=== PATIENT | female | born 1985 | race Caucasian/White ===

== ENCOUNTER 2017-01-08 20:56 | Emergency (ER) | payer SELFPAY ==
[2017-01-08] MEDS ORDERED: traMADol HCl 50 MG TAB ONE (22:03)
== END 2017-01-08 22:09 | disposition home or self-care (01) ==
LOC: BURERS 20:56
DX: E04.1 Nontoxic single thyroid nodule (principal); I10 Essential (primary) hypertension; F17.210 Nicotine dependence, cigarettes, uncomplicated
CPT/HCPCS: 99282

== ENCOUNTER 2017-02-20 11:32 | Emergency (ER) | payer SELFPAY ==
[2017-02-20 12:03] LABS: Bilirubin Negative (Negative); Blood, Urine Trace (Negative); Clarity Clear (Clear); Glucose, Urine (Dipstick) Negative (Negative); Leukocyte Negative (Negative); Nitrite Negative (Negative); Protein, Urine (Dipstick) Negative (Neg-Trace); Specific Gravity, Urine 1.015 (1.005-1.030); Urobilinogen 0.2 mg/dL (0.2-1.0); pH, Urine 6.5 (5.0-9.0)
[2017-02-20 12:07] LABS: Pregu Control Bar Appear? YES (CONTROL BAR)
[2017-02-20 12:08] LABS: Specific Gravity 1.015 (1.002-1.036)
[2017-02-20 12:14] LABS: RBC/HPF 0-3 HPF (0-3); Squamous Epithelial 0-3 HPF (0-3)
== END 2017-02-20 12:32 | disposition home or self-care (01) ==
LOC: BURERS 11:32
DX: Z32.02 Encounter for pregnancy test, result negative (principal); E07.89 Other specified disorders of thyroid; I10 Essential (primary) hypertension; I42.9 Cardiomyopathy, unspecified; F17.210 Nicotine dependence, cigarettes, uncomplicated
CPT/HCPCS: 81003; 81015; 81025; 99282

== ENCOUNTER 2017-09-05 13:53 | Emergency (ER) | payer SELFPAY ==
[2017-09-05 14:40] LABS: Anion Gap 13 mmol/L (10-20); BUN (Urea Nitrogen) 9 mg/dL (7.0-18.7); Calc. Creatinine Clearance 0 mL/min (70-130); Calcium 8.5 mg/dL (7.8-10.44); Carbon Dioxide 23 mmol/L (22-29); Chloride 107 mmol/L (98-107); Estimated GFR-MDRD 82; Glucose 109 mg/dL (70-105); Potassium 3.6 mmol/L (3.5-5.1); Sodium 139 mmol/L (136-145)
[2017-09-05 14:41] LABS: BHCG - Serum Negative (NEGATIVE); Pregs Control Background? CLEAR/WHITE (CLR/WHITE); Pregs Control Bar Appear? YES (CONTROL BAR)
== END 2017-09-05 15:05 | disposition home or self-care (01) ==
LOC: BURERS 13:53
DX: R60.0 Localized edema (principal); I10 Essential (primary) hypertension; I42.9 Cardiomyopathy, unspecified; F17.210 Nicotine dependence, cigarettes, uncomplicated
CPT/HCPCS: 36415; 80048; 84703; 85379; 99283

== ENCOUNTER 2017-11-18 19:23 | Emergency (ER) | payer SELFPAY ==
[2017-11-18] MEDS ORDERED: Ondansetron ODT 4 MG TAB ONE (19:39)
== END 2017-11-18 19:50 | disposition home or self-care (01) ==
LOC: BURERS 19:23
DX: B34.9 Viral infection, unspecified (principal); I10 Essential (primary) hypertension; F17.210 Nicotine dependence, cigarettes, uncomplicated
CPT/HCPCS: 99283; Q0162

== ENCOUNTER 2017-12-22 20:05 | Emergency (ER) | payer SELFPAY | END 2017-12-22 21:07 | disposition home or self-care (01) | LOC: BURERS 20:05 | DX: R60.0 Localized edema (principal); I10 Essential (primary) hypertension; F17.210 Nicotine dependence, cigarettes, uncomplicated | CPT/HCPCS: 36415; 85379; 99283 ==

== ENCOUNTER 2018-04-23 19:05 | Emergency (ER) | payer SELFPAY ==
[2018-04-23 19:52] LABS: BHCG - Serum Negative (NEGATIVE); Pregs Control Background? CLEAR/WHITE (CLR/WHITE); Pregs Control Bar Appear? YES (CONTROL BAR)
== END 2018-04-23 20:15 | disposition home or self-care (01) ==
LOC: BURERS 19:05
DX: R60.9 Edema, unspecified (principal); I10 Essential (primary) hypertension; F17.210 Nicotine dependence, cigarettes, uncomplicated; Z79.899 Other long term (current) drug therapy
CPT/HCPCS: 36415; 83880; 84703; 85379; 99283

== ENCOUNTER 2019-06-28 14:39 | Emergency (ER) | payer MEDICAID, SELFPAY ==
[2019-06-28] MEDS ORDERED: AMOXicillin 250 MG CAP ONE (15:10)
== END 2019-06-28 15:19 | disposition home or self-care (01) ==
LOC: BURERS 14:39
DX: K02.9 Dental caries, unspecified (principal); K03.81 Cracked tooth; F17.210 Nicotine dependence, cigarettes, uncomplicated; I10 Essential (primary) hypertension; I42.9 Cardiomyopathy, unspecified
CPT/HCPCS: 99283

== ENCOUNTER 2019-11-30 18:36 | Emergency (ER) | payer SELFPAY ==
[2019-11-30] MEDS ORDERED: predniSONE 20 MG TAB ONE ×2 (19:19)
== END 2019-11-30 19:45 | disposition home or self-care (01) ==
LOC: BURERS 18:36
DX: E07.89 Other specified disorders of thyroid (principal); I10 Essential (primary) hypertension; F17.210 Nicotine dependence, cigarettes, uncomplicated
CPT/HCPCS: 99282; J7512

== ENCOUNTER 2021-12-06 09:04 | Emergency (ER) | payer OTHER ==
[2021-12-06 10:10] LABS: INR-International Normal Ratio 1.1
[2021-12-06 10:14] LABS: #Lymphocytes 0.4 thou/uL (1.20-3.40); #Monocytes 0.5 thou/uL (0.11-0.59); #Neutrophils 4.3 thou/uL (1.40-6.50); %Basophils 0.7 % (0.0-1.0); %Eosinophils 0.2 % (0.0-10.0); %Lymphocytes 8.3 % (21.0-51.0); %Monocytes 9.9 % (0.0-10.0); Hemoglobin 12.8 g/dL (12.0-16.0); Mean Corpuscular Hemoglobin 27.1 pg (27.0-31.0); Mean Corpuscular Volume 79.8 fL (78.0-98.0); Mean Platelet Volume 9.4 fL (7.4-10.4); Platelet Count 224 thou/uL (130-400); RBC Distribution Width 11.7 % (11.5-14.5); Red Blood Cell (RBC) Count 4.71 mill/uL (4.20-5.40); White Blood Cell (WBC) Count 5.4 thou/uL (4.8-10.8)
[2021-12-06 10:17] LABS: ALT (SGPT) 22 U/L (8-55); AST (SGOT) 14 U/L (5-34); Albumin 3.9 g/dL (3.5-5.0); Alkaline Phosphatase 91 U/L (40-110); Anion Gap 13 mmol/L (10-20); BUN (Urea Nitrogen) 10 mg/dL (7.0-18.7); Bilirubin, Total 0.4 mg/dL (0.2-1.2); Calc. Creatinine Clearance 0 mL/min (70-130); Calcium 9.1 mg/dL (7.8-10.44); Carbon Dioxide 22 mmol/L (22-29); Chloride 104 mmol/L (98-107); Globulin 3.2 g/dL (2.4-3.5); Glucose 103 mg/dL (70-105); Potassium 4.2 mmol/L (3.5-5.1); Protein, Total 7.1 g/dL (6.0-8.3); Sodium 135 mmol/L (136-145)
[2021-12-06] MEDS ORDERED: Dexamethasone 4 mg/ml Vial ONE (10:38)
[2021-12-06] MEDS ORDERED: diphenhydrAMINE 50 MG/ML VIAL ONE (10:38)
[2021-12-06] MEDS ORDERED: Metoclopramide HCl 10 MG/2 ML VIAL ONE (10:38)
[2021-12-06] MEDS ORDERED: HYDROcodone/Acetaminophen 5/325 mg Tablet ONE (10:57)
[2021-12-07 16:25] LABS: SARS-CoV-2 PCR by NAA DETECTED (NotDetected)
== END 2021-12-06 14:08 | disposition home or self-care (01) ==
LOC: BURERS 09:04
DX: U07.1 COVID-19 (principal); I10 Essential (primary) hypertension; F17.210 Nicotine dependence, cigarettes, uncomplicated
CPT/HCPCS: 36415; 80053; 83605; 85025; 85610; 87081; 87430; 87804; 96374; 96375; J1100; J1200; J2765; U0003; U0005

== ENCOUNTER 2023-03-29 16:47 | Emergency (ER) | payer OTHER ==
[2023-03-29] MEDS ORDERED: Dexamethasone 10 MG/ML VIAL ONE (18:07)
[2023-03-29] MEDS ORDERED: Ketorolac Tromethamine 30 MG/ML VIAL ONE (18:07)
== END 2023-03-29 18:14 | disposition home or self-care (01) ==
LOC: BURERS 16:47
DX: J06.9 Acute upper respiratory infection, unspecified (principal); J02.8 Acute pharyngitis due to other specified organisms; F17.210 Nicotine dependence, cigarettes, uncomplicated
CPT/HCPCS: 87081; 87430; 96372; 99283; J1100; J1885

== ENCOUNTER 2023-06-29 15:11 | Emergency (ER) | payer BC, OTHER | END 2023-06-29 15:30 | disposition home or self-care (01) | LOC: BURERS 15:11 | DX: R68.84 Jaw pain (principal); K02.9 Dental caries, unspecified; I10 Essential (primary) hypertension; F17.210 Nicotine dependence, cigarettes, uncomplicated | CPT/HCPCS: 99282 ==

== ENCOUNTER 2024-07-23 22:14 | Emergency (ER) | payer BC | END 2024-07-23 23:15 | disposition home or self-care (01) | LOC: BURERS 22:14 | DX: S63.615A Unspecified sprain of left ring finger, initial encounter (principal); I10 Essential (primary) hypertension; F17.210 Nicotine dependence, cigarettes, uncomplicated; W23.0XXA Caught, crushed, jammed, or pinched between moving objects, initial encounter ==

== ENCOUNTER 2025-10-18 20:26 | Emergency (ER) | payer BC | END 2025-10-18 21:31 | disposition home or self-care (01) | LOC: BURERS 20:26 | DX: A08.4 Viral intestinal infection, unspecified (principal); I10 Essential (primary) hypertension; F17.210 Nicotine dependence, cigarettes, uncomplicated; Z79.899 Other long term (current) drug therapy | CPT/HCPCS: 99283; Q0162 ==